=== PATIENT | male | born 1990 ===

== ENCOUNTER 2016-06-24 17:02 | Emergency (ER) | payer SELFPAY ==
[2016-06-24 17:23] VITALS: BP 130/78; PULSE 113; RESP 20; TEMP 100; O2SAT 99
[2016-06-24] MEDS ORDERED: Albuterol-Ipratrop 3 mg / 0.5 (3 ml) UD INH STA (17:25)
[2016-06-24] MEDS ORDERED: Albuterol-Ipratrop 3 mg / 0.5 (3 ml) UD IH STA ×2 (17:25→17:26)
[2016-06-24] MEDS ORDERED: Albuterol-Ipratrop 3 mg / 0.5 (3 ml) UD ONE (17:26)
--- NOTE | 2016-06-24 17:29 | ED PDOC ---
HPI: CCC, URI, Sore Throat Time Seen by Provider: 06/24/16 17:15 Chief Complaint (Nursing): Flu-like Symptoms Chief Complaint (Provider): Cough History Per: Patient History/Exam Limitations: no limitations Have you had recent travel within the past 21 days to any of the following countries: [place], [place], [place] or [place]?: No Onset/Duration Of Symptoms: Days Current Symptoms Are (Timing): Still Present Associated Symptoms: Nasal Congestion Additional Complaint(s): Pt. with cough, wheezes, bodyaches ongoing since yesterday. No nausea, vomit, diarrhea. Has chest pain only on coughing a lot. No abd pain, back pain, sore throat, fever. Did not take any meds for it except nebulizer which helped some. No weakness. No calf pain or long distance travel. Feels like his asthma flare that he has had in the past. Past Medical History Reviewed: Nursing Documentation, Vital Signs Vital Signs: Last Vital Signs Temp 100.0 F H 06/24/16 17:11 Pulse 113 H 06/24/16 17:11 Resp 20 06/24/16 17:11 BP 130/78 06/24/16 17:11 Pulse Ox 99 06/24/16 17:32 - Medical History PMH: Asthma - Family History Family History: States: Unknown Family Hx, Hypertension - Living Arrangements Living Arrangements: With Family - Social History Current smoker - smoking cessation education provided: No Alcohol: None Drugs: Denies - Home Medications Home Medications: Ambulatory Orders Medication Instructions Recorded Albuterol 0.083% [Albuterol 3 ml IH Q4 PRN #20 neb 04/16/16 Sulfate 3 Ml] Albuterol HFA [Ventolin HFA 90 2 puff IH Q4 PRN #1 inh 04/16/16 mcg/actuation (8 g)] Fluticasone/Salmeterol 250/50 1 puff IH Q12 #1 inh 04/16/16 [Advair Diskus] Prednisone 50 mg PO DAILY #5 tablet 04/16/16 Azithromycin [Zithromax Tri-Earl] 1 tab PO DAILY #3 tablet 04/18/16 Albuterol Sulfate [Proair Hfa] 0.09 mg IH Q6H PRN #2 inh 06/24/16 Azithromycin [Zithromax] 250 mg PO DAILY 5 Days 06/24/16 Ibuprofen [Motrin] 600 mg PO TID 7 Days 06/24/16 predniSONE [predniSONE Tab] 20 mg PO BID 5 Days 06/24/16 - Allergies Allergies/Adverse Reactions: Allergies Allergy/AdvReac Type Severity Reaction Status Date / Time No Known Allergies Allergy Verified 04/16/16 18:27 Review of Systems Constitutional: Negative for: Fever, Weakness Eyes: Negative for: Vision Change ENT: Negative for: Nose Pain, Nose Discharge, Nose Congestion, Mouth Pain, Mouth Swelling, Throat Pain Cardiovascular: Positive for: Chest Pain. Negative for: Palpitations, Orthopnea , Edema, Light Headedness Respiratory: Positive for: Cough, Shortness of Breath, Wheezing Gastrointestinal: Negative for: Nausea, Vomiting, Abdominal Pain Musculoskeletal: Positive for: Other (bodyaches). Negative for: Neck Pain, Arm Pain Neurological: Negative for: Weakness, Confusion, Headache, Dizziness Physical Exam - Reviewed Nursing Documentation Reviewed: Yes Vital Signs Reviewed: Yes - Physical Exam Appears: Positive for: Non-toxic, No Acute Distress Head Exam: Positive for: ATRAUMATIC, NORMAL INSPECTION, NORMOCEPHALIC Skin: Positive for: Normal Color, Warm, DRY Eye Exam: Positive for: EOMI, Normal appearance, PERRL ENT: Positive for: Nasal Congestion. Negative for: Pharyngeal Erythema, Tonsillar Exudate Neck: Positive for: Normal, Painless ROM Cardiovascular/Chest: Positive for: Regular Rate, Rhythm. Negative for: Edema Respiratory: Positive for: Decreased Breath Sounds, Wheezing (b/l diffuse). Negative for: Accessory Muscle Use Gastrointestinal/Abdominal: Positive for: Soft. Negative for: Tenderness, Guarding Back: Positive for: Normal Inspection. Negative for: L CVA Tenderness, R CVA Tenderness Extremity: Positive for: Normal ROM. Negative for: Tenderness, Pedal Edema, Calf Tenderness Neurologic/Psych: Positive for: Alert, Oriented - Laboratory Results Interpretation Of Abn Labs: no acute - ECG O2 Sat by Pulse Oximetry: 99 Pulse Ox Interpretation: Normal - Radiology X-Ray: Interpreted by Me, Viewed By Me, Read By Radiologist X-Ray Interpretation: Infiltrates (LLL) - Progress ED Course And Treament: 1905: Stable. AAOx3. Pain free. Feels much better. Breathing comfortably. Tolerated PO. FU with pcp. Disposition - Clinical Impression Clinical Impression: Pneumonia - Patient ED Disposition Is Patient to be Admitted: No Counseled Patient/Family Regarding: Studies Performed, Diagnosis, Need For Followup, Rx Given - Disposition Referrals: [facility] [Outside] - 06/25/16 Disposition: Routine/Home Disposition Time: 19:06 Condition: STABLE Additional Instructions: Return if not better in 3 days. Prescriptions: Ibuprofen [Motrin] 600 mg PO TID 7 Days Albuterol Sulfate [Proair Hfa] 0.09 mg IH Q6H PRN #2 inh PRN Reason: Wheezing Azithromycin [Zithromax] 250 mg PO DAILY 5 Days predniSONE [predniSONE Tab] 20 mg PO BID 5 Days Instructions: Pneumonia (ED) Forms: [facility] ED School/Work Excuse
--- NOTE | 2016-06-24 18:00 | RAD ---
HISTORY: dyspnea COMPARISON: Chest x-ray performed 04/18/16 TECHNIQUE: Chest PA and lateral FINDINGS: LUNGS: Mild left basilar atelectasis or developing infiltrate. Please note that chest x-ray has limited sensitivity for the detection of pulmonary masses. PLEURA: No significant pleural effusion identified. No definite pneumothorax . CARDIOVASCULAR: The cardiomediastinal silhouette appears within normal limits of size. OSSEOUS STRUCTURES: No acute osseous abnormality identified. VISUALIZED UPPER ABDOMEN: Unremarkable. OTHER FINDINGS: None. IMPRESSION: Mild left basilar atelectasis or developing infiltrate.
--- NOTE | 2016-06-25 11:22 | CARD ---
APPROVED REPORT EKG Measurement Heart [id number] <Conclusion> Sinus tachycardia Cannot rule out Inferior infarct, age undetermined Abnormal ECG
== END 2016-06-24 19:25 | disposition home or self-care (01) ==
LOC: H.ER 17:02
DX: J18.9 Pneumonia, unspecified organism (principal); J02.9 Acute pharyngitis, unspecified; R50.9 Fever, unspecified

== ENCOUNTER 2016-09-27 11:47 | Emergency (ER) | payer OTHER ==
[2016-09-27 11:52] VITALS: BP 129/67; TEMP 98; O2SAT 98
[2016-09-27 11:53] VITALS: BMI 36.2
[2016-09-27 12:12] VITALS: PULSE 97; RESP 17
--- NOTE | 2016-09-27 12:29 | ED PDOC ---
HPI: General Adult Time Seen by Provider: 09/27/16 12:07 Chief Complaint (Nursing): Rib Injury Chief Complaint (Provider): Left Rib Cage Pain History Per: Patient History/Exam Limitations: no limitations Onset/Duration Of Symptoms: Other (Acute onset) Have you had recent travel within the past 21 days to any of the following countries: [place], [place], [place] or [place]?: No Current Symptoms Are (Timing): Still Present Pain Scale Rating Of: 5 Additional Complaint(s): Timi Domingo, a 26 year old male, presents to the ED with left rib cage pain. The patient states he was lifting cement blocks then he went to stretch and had an acute onset of pain. Pt states he felt a pop sensation. He states that the pain is non-radiating and he has not had similar pains in the past. The patient reports that he took tylenol to ease the pain but it offered him no relief prompting his ED visit. He states that the pain increases with movement and deep breathing. Denies nausea, vomiting, diarrhea, SOB, and abdominal pain. Past Medical History Reviewed: Historical Data, Nursing Documentation, Vital Signs Vital Signs: Last Vital Signs Temp 98 F 09/27/16 11:51 Pulse 97 H 09/27/16 11:51 Resp 17 09/27/16 12:10 BP 129/67 09/27/16 11:51 Pulse Ox 98 09/27/16 13:18 - Medical History PMH: Asthma - Surgical History Surgical History: No Surg Hx - Family History Family History: States: Unknown Family Hx, Hypertension - Social History Current smoker - smoking cessation education provided: Yes Alcohol: Occasional Drugs: Denies - Home Medications Home Medications: Ambulatory Orders Medication Instructions Recorded Albuterol 0.083% [Albuterol 3 ml IH Q4 PRN #20 neb 04/16/16 Sulfate 3 Ml] Albuterol HFA [Ventolin HFA 90 2 puff IH Q4 PRN #1 inh 04/16/16 mcg/actuation (8 g)] Fluticasone/Salmeterol 250/50 1 puff IH Q12 #1 inh 04/16/16 [Advair Diskus] Prednisone 50 mg PO DAILY #5 tablet 04/16/16 Azithromycin [Zithromax Tri-Earl] 1 tab PO DAILY #3 tablet 04/18/16 Albuterol Sulfate [Proair Hfa] 0.09 mg IH Q6H PRN #2 inh 06/24/16 Azithromycin [Zithromax] 250 mg PO DAILY 5 Days 06/24/16 Ibuprofen [Motrin] 600 mg PO TID 7 Days 06/24/16 predniSONE [predniSONE Tab] 20 mg PO BID 5 Days 06/24/16 Ibuprofen [Motrin Tab] 800 mg PO Q6H PRN #20 tab 09/27/16 - Allergies Allergies/Adverse Reactions: Allergies Allergy/AdvReac Type Severity Reaction Status Date / Time cyclobenzaprine AdvReac VOMITING Verified 09/27/16 12:45 [From Flexeril] Review of Systems ROS Statement: Except As Marked, All Systems Reviewed And Found Negative Cardiovascular: Negative for: Chest Pain Gastrointestinal: Negative for: Nausea, Vomiting, Diarrhea Musculoskeletal: Positive for: Other (Left rib cage pain) Physical Exam - Reviewed Nursing Documentation Reviewed: Yes Vital Signs Reviewed: Yes - Physical Exam Appears: Positive for: Well, Non-toxic, No Acute Distress Head Exam: Positive for: ATRAUMATIC, NORMAL INSPECTION, NORMOCEPHALIC Skin: Positive for: Normal Color, Warm, DRY Eye Exam: Positive for: Normal appearance ENT: Positive for: Normal ENT Inspection Cardiovascular/Chest: Positive for: Regular Rate, Rhythm. Negative for: Chest Non Tender Respiratory: Positive for: Normal Breath Sounds, Other (Tenderness to right left cage without crepitus and without step off; no ecchymosis and no erythema in area of tenderness). Negative for: Accessory Muscle Use, Wheezing, Respiratory Distress Gastrointestinal/Abdominal: Positive for: Normal Exam, Soft. Negative for: Tenderness Back: Positive for: Normal Inspection Neurologic/Psych: Positive for: Alert, Oriented, Gait - ECG O2 Sat by Pulse Oximetry: 98 (RA) Pulse Ox Interpretation: Normal Medical Decision Making Medical Decision Makin:07 Initial Impression: 26 year old male presenting with acute left rib cage pain. Initial Plan: * RAD Ribs and chest * Flexeril 10mg PO - Not given, patient reports nausea and vomiting with it * Motrin TAB 600mg PO Rib x-ray : No acute fracture, no pneumothorax, no pneumonia Scribe Attestation: Documented by Colette Millan acting as a scribe for Mary Lutz PA-C. Scribe Attestation All medical record entries made by the Scribe were at my direction and personally dictated by me. I have reviewed the chart and agree that the record accurately reflects my personal performance of the history, physical exam, medical decision making, and the department course for this patient. I have also personally directed, reviewed, and agree with the discharge instructions and disposition. Disposition - Clinical Impression Clinical Impression: Rib pain - Patient ED Disposition Is Patient to be Admitted: No Counseled Patient/Family Regarding: Diagnosis, Need For Followup, Rx Given - Disposition Referrals: [facility] [Outside] Disposition: Routine/Home Disposition Time: 13:21 Condition: GOOD Prescriptions: Ibuprofen [Motrin Tab] 800 mg PO Q6H PRN #20 tab PRN Reason: Pain Instructions: Rib Contusion (ED)
--- NOTE | 2016-09-27 13:35 | RAD ---
PROCEDURE: Radiographs of the Chest and Left Ribs. HISTORY: rib pain, cracking COMPARISON: None availableKey. TECHNIQUE: Frontal radiograph of the chest and multiple oblique radiographs of the left ribs were obtained. FINDINGS: LEFT RIBS: No fracture or focal lesion visualized. LUNGS: Clear. PLEURA: No pneumothorax or pleural fluid. CARDIOVASCULAR: Normal sized heart. No pulmonary vascular congestion. OTHER FINDINGS: None. IMPRESSION: Unremarkable radiographs of the chest and left ribs. No left rib fracture.
--- NOTE | 2016-10-02 09:36 | CARD ---
APPROVED REPORT EKG Measurement Heart [id number] ID [id number] <Conclusion> Normal sinus rhythm ???Possible Inferior infarct, age undetermined Repeat EKG after a deep inspiration in upright position Abnormal ECG
== END 2016-09-27 13:48 | disposition home or self-care (01) ==
LOC: H.ER 11:47
DX: R07.81 Pleurodynia (principal); J45.909 Unspecified asthma, uncomplicated

== ENCOUNTER 2016-11-05 14:47 | Emergency (ER) | payer OTHER ==
[2016-11-05 14:48] VITALS: BMI 36.2
[2016-11-05 15:02] VITALS: O2SAT 100
--- NOTE | 2016-11-05 17:53 | RAD ---
HISTORY: Left flank pain x 1 month COMPARISON: 09/27/2016. TECHNIQUE: Chest PA and lateral FINDINGS: LUNGS: No active pulmonary disease. PLEURA: No significant pleural effusion identified. No pneumothorax apparent. CARDIOVASCULAR: Normal. OSSEOUS STRUCTURES: No significant abnormalities. VISUALIZED UPPER ABDOMEN: Normal. OTHER FINDINGS: None. IMPRESSION: No active disease. No significant interval change compared to the prior examination(s).
--- NOTE | 2016-11-05 17:53 | ED PDOC ---
HPI: General Adult Time Seen by Provider: 11/05/16 15:24 Chief Complaint (Nursing): Rib Injury Chief Complaint (Provider): LEft rib pain 1 month, headache x years, right arm numbness x 3 months inte History Per: Patient History/Exam Limitations: no limitations Onset/Duration Of Symptoms: Days Have you had recent travel within the past 21 days to any of the following countries: [place], [place], [place] or [place]?: No Current Symptoms Are (Timing): Still Present Severity: Moderate Pain Scale Rating Of: 5 Additional Complaint(s): PT states he also would like his cholesterol checked. PT does not have PMD. No medications for headache or rib pain taken today. Past Medical History Reviewed: Historical Data, Nursing Documentation, Vital Signs Vital Signs: Last Vital Signs Temp 98 F 11/05/16 14:59 Pulse 94 H 11/05/16 14:59 Resp 18 11/05/16 14:59 BP 126/57 L 11/05/16 14:59 Pulse Ox 100 11/05/16 14:59 - Medical History PMH: Asthma - Surgical History Surgical History: No Surg Hx - Family History Family History: States: Unknown Family Hx, Hypertension - Home Medications Home Medications: Ambulatory Orders Medication Instructions Recorded Albuterol 0.083% [Albuterol 3 ml IH Q4 PRN #20 neb 04/16/16 Sulfate 3 Ml] Albuterol HFA [Ventolin HFA 90 2 puff IH Q4 PRN #1 inh 04/16/16 mcg/actuation (8 g)] Fluticasone/Salmeterol 250/50 1 puff IH Q12 #1 inh 04/16/16 [Advair Diskus] Prednisone 50 mg PO DAILY #5 tablet 04/16/16 Azithromycin [Zithromax Tri-Earl] 1 tab PO DAILY #3 tablet 04/18/16 Albuterol Sulfate [Proair Hfa] 0.09 mg IH Q6H PRN #2 inh 06/24/16 Azithromycin [Zithromax] 250 mg PO DAILY 5 Days 06/24/16 Ibuprofen [Motrin] 600 mg PO TID 7 Days 06/24/16 predniSONE [predniSONE Tab] 20 mg PO BID 5 Days 06/24/16 Ibuprofen [Motrin Tab] 800 mg PO Q6H PRN #20 tab 06/01/17 - Allergies Allergies/Adverse Reactions: Allergies Allergy/AdvReac Type Severity Reaction Status Date / Time cyclobenzaprine AdvReac VOMITING Verified 09/27/16 12:45 [From Flexeril] Review of Systems ROS Statement: Except As Marked, All Systems Reviewed And Found Negative Musculoskeletal: Positive for: Other (Rib pain x 1 month ) Neurological: Positive for: Numbness (Right arm, intermittent x 3 months ), Headache (On/off for years) Physical Exam - Reviewed Nursing Documentation Reviewed: Yes Vital Signs Reviewed: Yes - Physical Exam Appears: Positive for: Well, Non-toxic, No Acute Distress Head Exam: Positive for: ATRAUMATIC, NORMAL INSPECTION, NORMOCEPHALIC Skin: Positive for: Normal Color, Warm, DRY Eye Exam: Positive for: Normal appearance, EOMI, PERRL ENT: Positive for: Normal ENT Inspection Neck: Positive for: Normal, Painless ROM Cardiovascular/Chest: Positive for: Regular Rate, Rhythm Respiratory: Positive for: CNT, Normal Breath Sounds Gastrointestinal/Abdominal: Positive for: Normal Exam, Bowel Sounds, Soft Back: Positive for: Normal Inspection Extremity: Positive for: Normal ROM Neurologic/Psych: Positive for: Alert, Oriented - ECG O2 Sat by Pulse Oximetry: 100 Pulse Ox Interpretation: Normal Medical Decision Making Medical Decision Making: C-spine normal CXR normal Disposition - Clinical Impression Clinical Impression: Radicular pain, Rib pain - Disposition Disposition: Routine/Home Disposition Time: 17:54 Condition: GOOD Instructions: Cervical Radiculopathy (ED)
[2016-11-05 17:54] VITALS: BP 128/78; PULSE 78; RESP 19; TEMP 97.7
--- NOTE | 2016-11-06 12:41 | RAD ---
PROCEDURE: Cervical Spine Radiographs. HISTORY: Pain. COMPARISON: None. FINDINGS: BONES: Alignment maintained. No fracture. Dens Intact. DISC SPACES: Disc spaces maintained in height. Spondylotic changes at C5-6 with osteophytes but no disc space narrowing. SOFT TISSUES: Normal. No prevertebral soft tissue swelling. OTHER FINDINGS: None. IMPRESSION: No fracture/ dislocation. Spondylotic changes at C5-6.
== END 2016-11-05 17:52 | disposition home or self-care (01) ==
LOC: H.ER 14:47
DX: M54.10 Radiculopathy, site unspecified (principal); R07.82 Intercostal pain

== ENCOUNTER 2016-11-09 18:06 | Emergency (ER) | payer OTHER ==
[2016-11-09 18:06] VITALS: BMI 36.2
[2016-11-09] MEDS ORDERED: Albuterol-Ipratrop 3 mg / 0.5 (3 ml) UD IH STA (18:50)
[2016-11-09] MEDS ORDERED: Albuterol-Ipratrop 3 mg / 0.5 (3 ml) UD INH STA (18:50)
--- NOTE | 2016-11-09 18:52 | ED PDOC ---
HPI: SOB/CHF/COPD Time Seen by Provider: 11/09/16 18:37 Chief Complaint (Nursing): Shortness Of Breath Chief Complaint (Provider): Shortness Of Breath History Per: Patient History/Exam Limitations: no limitations Onset/Duration Of Symptoms: Days (x 1 week) Current Symptoms Are (Timing): Still Present Associated Symptoms: Productive Cough. denies: Chest Pain, Dizziness, Tingling In Hands Or Face Additional Complaint(s): Timi is a 26 y/o male with a past medical history of asthma, who presents to the emergency department complaining of difficulty breathing with associated cough with green phlegm, ongoing for 1 week. Patient denies long distance travel , chest pain, leg pain, numbness, tingling, headaches, dizziness, weakness, nausea, vomiting, and diarrhea. He reports taking nebulized treatments with minimal improvement, but woke up with symptoms again today. Patient is only taking medications for his asthma. 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 Feels like his asthma. PMD: Unknown Past Medical History Reviewed: Historical Data, Nursing Documentation, Vital Signs Vital Signs: Last Vital Signs Temp 98.2 F 11/09/16 18:12 Pulse 99 H 11/09/16 18:12 Resp 19 11/09/16 18:31 BP 152/89 H 11/09/16 18:12 Pulse Ox 97 11/09/16 20:08 - Medical History PMH: Asthma - Surgical History Surgical History: No Surg Hx - Family History Family History: States: Unknown Family Hx - Social History Current smoker - smoking cessation education provided: Yes (Heavy) Alcohol: Occasional Drugs: Denies - Home Medications Home Medications: Ambulatory Orders Medication Instructions Recorded Albuterol 0.083% [Albuterol 3 ml IH Q4 PRN #20 neb 04/16/16 Sulfate 3 Ml] Albuterol HFA [Ventolin HFA 90 2 puff IH Q4 PRN #1 inh 04/16/16 mcg/actuation (8 g)] Fluticasone/Salmeterol 250/50 1 puff IH Q12 #1 inh 04/16/16 [Advair Diskus] Prednisone 50 mg PO DAILY #5 tablet 04/16/16 Azithromycin [Zithromax Tri-Earl] 1 tab PO DAILY #3 tablet 04/18/16 Albuterol Sulfate [Proair Hfa] 0.09 mg IH Q6H PRN #2 inh 06/24/16 Azithromycin [Zithromax] 250 mg PO DAILY 5 Days 06/24/16 Ibuprofen [Motrin] 600 mg PO TID 7 Days 06/24/16 predniSONE [predniSONE Tab] 20 mg PO BID 5 Days 06/24/16 Ibuprofen [Motrin Tab] 800 mg PO Q6H PRN #20 tab 09/27/16 Albuterol Sulfate [Proair Hfa] 0.09 mg IH Q6H PRN #2 inh 11/09/16 predniSONE [predniSONE Tab] 20 mg PO BID 5 Days 11/09/16 - Allergies Allergies/Adverse Reactions: Allergies Allergy/AdvReac Type Severity Reaction Status Date / Time cyclobenzaprine AdvReac VOMITING Verified 09/27/16 12:45 [From Flexeril] Review of Systems ROS Statement: Except As Marked, All Systems Reviewed And Found Negative Constitutional: Negative for: Weakness Cardiovascular: Negative for: Chest Pain Respiratory: Positive for: Cough (with green phlegm), Shortness of Breath, Sputum Gastrointestinal: Negative for: Nausea, Vomiting, Diarrhea Musculoskeletal: Negative for: Leg Pain Neurological: Negative for: Numbness, Headache, Dizziness, Other (Tingling) Physical Exam - Reviewed Nursing Documentation Reviewed: Yes Vital Signs Reviewed: Yes - Physical Exam Appears: Positive for: Non-toxic, No Acute Distress Head Exam: Positive for: ATRAUMATIC, NORMAL INSPECTION, NORMOCEPHALIC Skin: Positive for: Normal Color, Warm, Dry Eye Exam: Positive for: EOMI, Normal appearance, PERRL ENT: Positive for: Nasal Congestion Neck: Positive for: Normal, Painless ROM, Supple Cardiovascular/Chest: Positive for: Regular Rate, Rhythm Respiratory: Positive for: Decreased Breath Sounds, Wheezing (mild wheezing bilaterally at the bases and on expiration ) Gastrointestinal/Abdominal: Positive for: Normal Exam, Soft. Negative for: Tenderness Back: Positive for: Normal Inspection. Negative for: L CVA Tenderness, R CVA Tenderness Extremity: Positive for: Normal ROM. Negative for: Deformity Neurologic/Psych: Positive for: Alert, Oriented - ECG O2 Sat by Pulse Oximetry: 97 (RA) Pulse Ox Interpretation: Normal - Progress ED Course And Treament: 2021: Stable. AAOx3. Feels much better. Breathing better. Ambulated with no issues. Medical Decision Making Medical Decision Making: Time: 18:50 Initial Plan: --Albuterol 3 mL INH --Predisone 60 mg PO --Pending X-Ray Left Shoulder --Peak Flow pre/post Treatment --Pending reassessment Time: 20:05 Upon provider evaluation patient is feeling better, medically stable, and requires no further treatment in the ED at this time. Patient will be discharged home with Rx. Counseling was provided and all questions were answered regarding diagnosis and need for follow up. There is agreement to discharge plan. Return if symptoms persist or worsen. Scribe Attestation: Documented by Yesica Rivera, acting as a scribe for Magen Stern MD Provider Scribe Attestation: All medical record entries made by the Scribe were at my direction and personally dictated by me. I have reviewed the chart and agree that the record accurately reflects my personal performance of the history, physical exam, medical decision making, and the department course for this patient. I have also personally directed, reviewed, and agree with the discharge instructions and disposition. Disposition - Clinical Impression Clinical Impression: Asthma - Patient ED Disposition Is Patient to be Admitted: No Counseled Patient/Family Regarding: Diagnosis, Need For Followup, Rx Given - Disposition Referrals: [facility] [Outside] - 11/12/16 Disposition: Routine/Home Disposition Time: 20:23 Condition: STABLE Additional Instructions: Return if not better in 3 days. Prescriptions: Albuterol Sulfate [Proair Hfa] 0.09 mg IH Q6H PRN #2 inh PRN Reason: Wheezing predniSONE [predniSONE Tab] 20 mg PO BID 5 Days Instructions: Asthma (ED) Forms: [facility] ED School/Work Excuse
[2016-11-09] MEDS ORDERED: Albuterol-Ipratrop 3 mg / 0.5 (3 ml) UD ONE ×2 (18:55→18:56)
[2016-11-10 12:01] VITALS: BP 152/89; PULSE 99; RESP 19; TEMP 98.2; O2SAT 97
== END 2016-11-09 20:31 | disposition home or self-care (01) ==
LOC: H.ER 18:06
DX: J45.909 Unspecified asthma, uncomplicated (principal)

== ENCOUNTER 2017-03-10 20:00 | Emergency (ER) | payer OTHER ==
[2017-03-10 20:00] VITALS: BMI 36.2
[2017-03-10 20:18] VITALS: BP 138/95; PULSE 109; RESP 18; TEMP 98.3; O2SAT 96
[2017-03-10] MEDS ORDERED: Albuterol-Ipratrop 3 mg / 0.5 (3 ml) UD ONE (20:57)
[2017-03-10] MEDS ORDERED: Albuterol-Ipratrop 3 mg / 0.5 (3 ml) UD INH STA ×3 (21:06→21:07)
--- NOTE | 2017-03-10 21:24 | ED PDOC ---
HPI: Chest Pain Time Seen by Provider: 03/10/17 20:11 Chief Complaint (Nursing): Chest Pain Chief Complaint (Provider): Chest Pain History Per: Patient Current Symptoms Are (Timing): Still Present Additional Complaint(s): 27 y/o male with history of Asthma presents to the ED complaining of chest pain and tightness radiating to the back x3days. Patient notes cold, congestion , and mild fever. Denies any further medical complaints. Past Medical History Reviewed: Historical Data, Nursing Documentation, Vital Signs Vital Signs: Last Vital Signs Temp 98.3 F 03/10/17 20:15 Pulse 109 H 03/10/17 20:15 Resp 18 03/10/17 20:15 BP 138/95 H 03/10/17 20:15 Pulse Ox 96 03/10/17 21:27 - Medical History PMH: Asthma - Family History Family History: States: Unknown Family Hx, Hypertension - Social History Current smoker - smoking cessation education provided: Yes (Heavy smoker>10 cigarettes daily) Alcohol: > 2 Drinks/Day Drugs: Denies - Home Medications Home Medications: Ambulatory Orders Medication Instructions Recorded Albuterol 0.083% [Albuterol 3 ml IH Q4 PRN #20 neb 04/16/16 Sulfate 3 Ml] Albuterol HFA [Ventolin HFA 90 2 puff IH Q4 PRN #1 inh 04/16/16 mcg/actuation (8 g)] Fluticasone/Salmeterol 250/50 1 puff IH Q12 #1 inh 04/16/16 [Advair Diskus] Prednisone 50 mg PO DAILY #5 tablet 04/16/16 Azithromycin [Zithromax Tri-Earl] 1 tab PO DAILY #3 tablet 04/18/16 Albuterol Sulfate [Proair Hfa] 0.09 mg IH Q6H PRN #2 inh 06/24/16 Azithromycin [Zithromax] 250 mg PO DAILY 5 Days tab 06/24/16 Ibuprofen [Motrin] 600 mg PO TID 7 Days tab 06/24/16 predniSONE [predniSONE Tab] 20 mg PO BID 5 Days tab 06/24/16 Ibuprofen [Motrin Tab] 800 mg PO Q6H PRN #20 tab 09/27/16 Albuterol Sulfate [Proair Hfa] 0.09 mg IH Q6H PRN #2 inh 11/09/16 predniSONE [predniSONE Tab] 20 mg PO BID 5 Days tab 11/09/16 Albuterol HFA [Ventolin HFA 90 2 puff IH [id number] PRN #1 puff 03/10/17 mcg/actuation (8 g)] Methylprednisolone [Medrol Dose 4 mg PO DAILY #21 mg 03/10/17 Pack (21 tabs)] Promethazine HCl/Codeine 5 ml PO HS #80 ml 03/10/17 [Prometh-Codein 6.25-10 mg/5 ml] - Allergies Allergies/Adverse Reactions: Allergies Allergy/AdvReac Type Severity Reaction Status Date / Time cyclobenzaprine AdvReac VOMITING Verified 09/27/16 12:45 [From Flexeril] Review of Systems ROS Statement: Except As Marked, All Systems Reviewed And Found Negative (As per HPI, otherwise negative) Constitutional: Positive for: Fever (mild) ENT: Positive for: Nose Congestion Cardiovascular: Positive for: Chest Pain Respiratory: Positive for: Cough Physical Exam - Reviewed Nursing Documentation Reviewed: Yes Vital Signs Reviewed: Yes - Physical Exam Appears: Positive for: Non-toxic, No Acute Distress Head Exam: Positive for: ATRAUMATIC, NORMAL INSPECTION, NORMOCEPHALIC Skin: Positive for: Normal Color, Warm, Dry Cardiovascular/Chest: Positive for: Regular Rate, Rhythm. Negative for: Murmur Respiratory: Positive for: Normal Breath Sounds. Negative for: Accessory Muscle Use, Respiratory Distress Neurologic/Psych: Positive for: Alert, Oriented (x3) - ECG O2 Sat by Pulse Oximetry: 96 (RA) Pulse Ox Interpretation: Normal Medical Decision Making Medical Decision Making: Time: 21:06 Initial Plan: --CXR --Albuterol 3ml INH --Albuterol 3ml INH --Albuterol 3ml INH --Methylprednisolone 125mg IVP --Peak flow pre/post Tx --Peak flow pre/post Tx --Peak flow pre/post Tx --Reevaluation Lungs CTA bilaterally on re-eval. POX:98% On RA Scribe Attestation: Documented by Igor Ramsey, acting as a scribe for Tiffani Leal PA-C Provider Scribe Attestation: All medical record entries made by the Scribe were at my direction and personally dictated by me. I have reviewed the chart and agree that the record accurately reflects my personal performance of the history, physical exam, medical decision making, and the department course for this patient. I have also personally directed, reviewed, and agree with the discharge instructions and disposition. Disposition - Clinical Impression Clinical Impression: Bronchitis - Patient ED Disposition Is Patient to be Admitted: No - Disposition Disposition: Routine/Home Disposition Time: 21:00 Condition: STABLE Prescriptions: Albuterol HFA [Ventolin HFA 90 mcg/actuation (8 g)] 2 puff IH [id number] PRN #1 puff PRN Reason: Shortness Of Breath Methylprednisolone [Medrol Dose Pack (21 tabs)] 4 mg PO DAILY #21 mg Promethazine HCl/Codeine [Prometh-Codein 6.25-10 mg/5 ml] 5 ml PO HS #80 ml Instructions: Acute Bronchitis (ED) Forms: [employer] (Ku[place]i), [facility] ED School/Work Excuse
--- NOTE | 2017-03-11 09:40 | RAD ---
HISTORY: chest pain, sob COMPARISON: Chest radiographs 11/05/2016. TECHNIQUE: Chest PA and lateral FINDINGS: LUNGS: No acute infiltrate is appreciated bilaterally. Marginal elevation left hemidiaphragm is again appreciated. Trace fibrosis noted at the left base once again. PLEURA: No significant pleural effusion identified. No pneumothorax apparent. CARDIOVASCULAR: Normal. OSSEOUS STRUCTURES: No significant abnormalities. VISUALIZED UPPER ABDOMEN: Normal. OTHER FINDINGS: None. IMPRESSION: Limited left hemidiaphragm elevation again evident. Trace fibrosis left base. No signal interval change or acute infiltrate/pleural effusion bilaterally.
== END 2017-03-10 22:45 | disposition home or self-care (01) ==
LOC: H.ER 20:00
DX: J40 Bronchitis, not specified as acute or chronic (principal); J45.909 Unspecified asthma, uncomplicated
CPT/HCPCS: 71020; 94640; 96374; 99282; J2930

== ENCOUNTER 2017-03-29 23:48 | Emergency (ER) | payer OTHER ==
[2017-03-29 23:49] VITALS: BMI 36.2
[2017-03-29 23:57] VITALS: BP 141/79; O2SAT 99
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
[2017-03-30 01:56] VITALS: PULSE 90
[2017-03-30 01:57] VITALS: RESP 17
--- NOTE | 2017-03-30 17:55 | RAD ---
PROCEDURE: Chest and right rib series dated on 03/30/2017 HISTORY: Chest wall pain. COMPARISON: Comparison made with chest radiograph 03/10/2017. TECHNIQUE: Frontal radiograph of the chest and multiple oblique radiographs of the right ribs were obtained. FINDINGS: RIGHT RIBS: No fracture or focal lesion visualized. LUNGS: Clear. PLEURA: No pneumothorax or pleural fluid. CARDIOVASCULAR: Normal sized heart. No pulmonary vascular congestion. OTHER FINDINGS: Minor multilevel degenerative spondylosis of the thoracic spine. IMPRESSION: Unremarkable radiographs of the chest and right ribs. No right rib fracture. Consider followup CT scan if acute fracture suspected clinically
--- NOTE | 2017-03-31 11:13 | CARD ---
APPROVED REPORT EKG Measurement Heart [id number] IL [id number] <Conclusion> Normal sinus rhythm Possible Left atrial enlargement Possible Inferior infarct, age undetermined Abnormal ECG
== END 2017-03-30 01:58 | disposition home or self-care (01) ==
LOC: H.ER 23:48
DX: S20.219A Contusion of unspecified front wall of thorax, initial encounter (principal); W22.8XXA Striking against or struck by other objects, initial encounter; Y92.89 Other specified places as the place of occurrence of the external cause; J45.909 Unspecified asthma, uncomplicated; Z87.891 Personal history of nicotine dependence
CPT/HCPCS: 71101; 93005; 96372; 99283; J1885

== ENCOUNTER 2017-04-21 22:20 | Emergency (ER) | payer OTHER ==
[2017-04-21 22:33] VITALS: BP 150/108; PULSE 84; RESP 18; TEMP 98.7
[2017-04-21] MEDS ORDERED: Albuterol-Ipratrop 3 mg / 0.5 (3 ml) UD IH STA (22:34)
--- NOTE | 2017-04-21 22:36 | ED PDOC ---
HPI: SOB/CHF/COPD Time Seen by Provider: 04/21/17 22:28 Chief Complaint (Nursing): Shortness Of Breath History Per: Patient Onset/Duration Of Symptoms: Days (1) Current Symptoms Are (Timing): Still Present Quality: Tightness Current Respiratory Medications: See Home Med List Severity: Mild Associated Symptoms: denies: Fever Additional Complaint(s): SOB assoc with nonproductive cough x 1 days. No fever. No improvement with inhaler. Past Medical History Vital Signs: Last Vital Signs Temp 98.7 F 04/21/17 22:28 Pulse 84 04/21/17 22:28 Resp 18 04/21/17 22:47 BP 150/108 H 04/21/17 22:28 Pulse Ox 98 04/21/17 22:47 - Medical History PMH: Asthma - Family History Family History: States: Unknown Family Hx, Hypertension - Home Medications Home Medications: Ambulatory Orders Medication Instructions Recorded Albuterol 0.083% [Albuterol 3 ml IH Q4 PRN #20 neb 04/16/16 Sulfate 3 Ml] Albuterol HFA [Ventolin HFA 90 2 puff IH Q4 PRN #1 inh 04/16/16 mcg/actuation (8 g)] Fluticasone/Salmeterol 250/50 1 puff IH Q12 #1 inh 04/16/16 [Advair Diskus] Prednisone 50 mg PO DAILY #5 tablet 04/16/16 Azithromycin [Zithromax Tri-Earl] 1 tab PO DAILY #3 tablet 04/18/16 Albuterol Sulfate [Proair Hfa] 0.09 mg IH Q6H PRN #2 inh 06/24/16 Azithromycin [Zithromax] 250 mg PO DAILY 5 Days tab 06/24/16 Ibuprofen [Motrin] 600 mg PO TID 7 Days tab 06/24/16 predniSONE [predniSONE Tab] 20 mg PO BID 5 Days tab 06/24/16 Ibuprofen [Motrin Tab] 800 mg PO Q6H PRN #20 tab 09/27/16 Albuterol Sulfate [Proair Hfa] 0.09 mg IH Q6H PRN #2 inh 11/09/16 predniSONE [predniSONE Tab] 20 mg PO BID 5 Days tab 11/09/16 Albuterol HFA [Ventolin HFA 90 2 puff IH [id number] PRN #1 puff 03/10/17 mcg/actuation (8 g)] Methylprednisolone [Medrol Dose 4 mg PO DAILY #21 mg 03/10/17 Pack (21 tabs)] Promethazine HCl/Codeine 5 ml PO HS #80 ml 03/10/17 [Prometh-Codein 6.25-10 mg/5 ml] Albuterol HFA [Ventolin HFA 90 1 - 2 puff IH Q6 PRN #1 inhaler 03/30/17 mcg/actuation (8 g)] Naproxen [Naprosyn] 500 mg PO Q12 #14 tab 03/30/17 Azithromycin [Zithromax] 250 mg PO DAILY #6 tab 04/21/17 Prednisone 50 mg PO DAILY #5 tab 04/21/17 - Allergies Allergies/Adverse Reactions: Allergies Allergy/AdvReac Type Severity Reaction Status Date / Time cyclobenzaprine AdvReac VOMITING Verified 09/27/16 12:45 [From Flexeril] Review of Systems ROS Statement: Except As Marked, All Systems Reviewed And Found Negative Respiratory: Positive for: Cough, Shortness of Breath, Wheezing Physical Exam - Reviewed Nursing Documentation Reviewed: Yes Vital Signs Reviewed: Yes - Physical Exam Appears: Positive for: Non-toxic, No Acute Distress Head Exam: Positive for: ATRAUMATIC, NORMAL INSPECTION, NORMOCEPHALIC Skin: Positive for: Normal Color, Warm, DRY Eye Exam: Positive for: EOMI, Normal appearance, PERRL ENT: Positive for: Normal ENT Inspection Neck: Positive for: Normal, Painless ROM Cardiovascular/Chest: Positive for: Regular Rate, Rhythm Respiratory: Positive for: Rhonchi, Wheezing. Negative for: Respiratory Distress Gastrointestinal/Abdominal: Positive for: Normal Exam, Bowel Sounds, Soft Back: Positive for: Normal Inspection Extremity: Positive for: Normal ROM Neurologic/Psych: Positive for: Alert, Oriented - ECG O2 Sat by Pulse Oximetry: 96 (RA) Pulse Ox Interpretation: Normal Medical Decision Making Medical Decision Making: Time: 22:34 Plan: - Chest X-Ray - Duoneb 3 mg/0.5 mg (3 ml) UD - Peak Flow Pre/Post Treatment Disposition - Clinical Impression Clinical Impression: Bronchitis Counseled Patient/Family Regarding: Studies Performed, Diagnosis, Need For Followup, Rx Given - Disposition Referrals: [facility] [Outside] Disposition: Routine/Home Disposition Time: 23:08 Condition: FAIR Prescriptions: Azithromycin [Zithromax] 250 mg PO DAILY #6 tab Prednisone 50 mg PO DAILY #5 tab Instructions: Acute Bronchitis (ED), Bronchospasm (ED) Forms: [employer] (Jordanian)
[2017-04-21 23:24] VITALS: O2SAT 98
--- NOTE | 2017-04-22 09:08 | RAD ---
HISTORY: cough COMPARISON: Chest radiograph dated 03/10/2017 TECHNIQUE: Chest PA and lateral FINDINGS: LUNGS: No active pulmonary disease. PLEURA: No significant pleural effusion identified. No pneumothorax apparent. CARDIOVASCULAR: Normal. OSSEOUS STRUCTURES: Unchanged. VISUALIZED UPPER ABDOMEN: Normal. OTHER FINDINGS: None. IMPRESSION: No active disease.
== END 2017-04-21 23:24 | disposition home or self-care (01) ==
LOC: H.ER 22:20
DX: J44.9 Chronic obstructive pulmonary disease, unspecified (principal)

== ENCOUNTER 2017-05-04 07:56 | Emergency (ER) | payer OTHER ==
[2017-05-04 08:03] VITALS: BP 137/88; PULSE 92; TEMP 98; O2SAT 97
[2017-05-04 08:10] VITALS: RESP 18
[2017-05-04] MEDS ORDERED: Albuterol-Ipratrop 3 mg / 0.5 (3 ml) UD IH STA (08:22)
[2017-05-04] MEDS ORDERED: Albuterol-Ipratrop 3 mg / 0.5 (3 ml) UD INH STA (08:22)
--- NOTE | 2017-05-04 09:28 | ED PDOC ---
HPI: SOB/CHF/COPD Time Seen by Provider: 05/04/17 08:08 Chief Complaint (Nursing): Shortness Of Breath Chief Complaint (Provider): Difficulty Breathing and Chest Tightness History Per: Patient History/Exam Limitations: no limitations Onset/Duration Of Symptoms: Hrs Current Symptoms Are (Timing): Still Present Associated Symptoms: denies: Fever, Chills, Productive Cough, Dizziness, Light- headedness Additional Complaint(s): 27 year old male with a past medical history of asthma presents to the ED complaining of difficulty breathing and chest tightness. The patient sates that his symptoms began yesterday while he was at work ([employer]). Patient notes some mild rhinnorhea and clear phlegm. Denies nausea, vomiting, diarrhea, vomiting, fever, chest pain, back pain, dizziness, lightheadedness. Feels same as usual asthma. Has had similar attacks in the past. No PMD Past Medical History Reviewed: Historical Data, Nursing Documentation, Vital Signs Vital Signs: Last Vital Signs Temp 98.0 F 05/04/17 08:03 Pulse 92 H 05/04/17 08:03 Resp 18 05/04/17 08:08 BP 137/88 05/04/17 08:03 Pulse Ox 97 05/04/17 09:32 - Medical History PMH: Asthma - Surgical History Surgical History: No Surg Hx - Family History Family History: States: Unknown Family Hx - Social History Current smoker - smoking cessation education provided: Yes Ex-Smoker (has not smoked in the last 12 months): Yes Alcohol: None Drugs: Denies - Home Medications Home Medications: Ambulatory Orders Medication Instructions Recorded Albuterol 0.083% [Albuterol 3 ml IH Q4 PRN #20 neb 04/16/16 Sulfate 3 Ml] Albuterol HFA [Ventolin HFA 90 2 puff IH Q4 PRN #1 inh 04/16/16 mcg/actuation (8 g)] Fluticasone/Salmeterol 250/50 1 puff IH Q12 #1 inh 04/16/16 [Advair Diskus] Prednisone 50 mg PO DAILY #5 tablet 04/16/16 Azithromycin [Zithromax Tri-Earl] 1 tab PO DAILY #3 tablet 04/18/16 Albuterol Sulfate [Proair Hfa] 0.09 mg IH Q6H PRN #2 inh 06/24/16 Azithromycin [Zithromax] 250 mg PO DAILY 5 Days tab 06/24/16 Ibuprofen [Motrin] 600 mg PO TID 7 Days tab 06/24/16 predniSONE [predniSONE Tab] 20 mg PO BID 5 Days tab 06/24/16 Ibuprofen [Motrin Tab] 800 mg PO Q6H PRN #20 tab 09/27/16 Albuterol Sulfate [Proair Hfa] 0.09 mg IH Q6H PRN #2 inh 11/09/16 predniSONE [predniSONE Tab] 20 mg PO BID 5 Days tab 11/09/16 Albuterol HFA [Ventolin HFA 90 2 puff IH [id number] PRN #1 puff 03/10/17 mcg/actuation (8 g)] Methylprednisolone [Medrol Dose 4 mg PO DAILY #21 mg 03/10/17 Pack (21 tabs)] Promethazine HCl/Codeine 5 ml PO HS #80 ml 03/10/17 [Prometh-Codein 6.25-10 mg/5 ml] Albuterol HFA [Ventolin HFA 90 1 - 2 puff IH Q6 PRN #1 inhaler 03/30/17 mcg/actuation (8 g)] Naproxen [Naprosyn] 500 mg PO Q12 #14 tab 03/30/17 Albuterol HFA [Ventolin HFA 90 2 puff IH Q4H #1 puff 04/21/17 mcg/actuation (8 g)] Azithromycin [Zithromax] 250 mg PO DAILY #6 tab 04/21/17 Prednisone 50 mg PO DAILY #5 tab 04/21/17 Albuterol Sulfate [Proair Hfa] 0.09 mg IH Q6H PRN #2 inh 05/04/17 predniSONE [predniSONE Tab] 20 mg PO BID 5 Days tab 05/04/17 - Allergies Allergies/Adverse Reactions: Allergies Allergy/AdvReac Type Severity Reaction Status Date / Time cyclobenzaprine AdvReac VOMITING Verified 09/27/16 12:45 [From Flexeril] Review of Systems ROS Statement: Except As Marked, All Systems Reviewed And Found Negative Constitutional: Negative for: Fever, Chills Cardiovascular: Positive for: Other (difficulty breathing). Negative for: Chest Pain (chest tightness), Light Headedness Gastrointestinal: Negative for: Nausea, Vomiting, Diarrhea Musculoskeletal: Negative for: Back Pain Neurological: Negative for: Dizziness Physical Exam - Reviewed Nursing Documentation Reviewed: Yes Vital Signs Reviewed: Yes - Physical Exam Appears: Positive for: Non-toxic, No Acute Distress Head Exam: Positive for: ATRAUMATIC, NORMAL INSPECTION, NORMOCEPHALIC Skin: Positive for: Normal Color, Warm, Dry. Negative for: Rash Eye Exam: Positive for: Normal appearance, EOMI, PERRL. Negative for: Nystagmus Neck: Positive for: Normal, Painless ROM, Supple Cardiovascular/Chest: Positive for: Regular Rate, Rhythm, Chest Non Tender. Negative for: Tachycardia Respiratory: Positive for: Decreased Breath Sounds, Wheezing (b/l lower bases). Negative for: Accessory Muscle Use, Rales, Rhonchi, Respiratory Distress Gastrointestinal/Abdominal: Positive for: Normal Exam, Bowel Sounds, Soft. Negative for: Tenderness, Guarding, Rebound Back: Positive for: Normal Inspection. Negative for: L CVA Tenderness, R CVA Tenderness Extremity: Positive for: Normal ROM. Negative for: Tenderness, Deformity, Swelling Lymphatic: Positive for: Normal Exam. Negative for: Adenopathy Neurologic/Psych: Positive for: Alert, Oriented, Gait - ECG ECG: Positive for: Interpreted By Me, Viewed By Me ECG Rhythm: Positive for: Normal QRS, Normal ST Segment, Sinus Rhythm O2 Sat by Pulse Oximetry: 97 (RA) Pulse Ox Interpretation: Normal - Progress ED Course And Treament: 1114: Stable. AAOx3. Pain free. Tolerated PO. No dyspnea. Medical Decision Making Medical Decision Makin Initial Impression 27 year old male presenting with difficulty breathing and chest tightness Initial Plan: * EKG * Albuterol 3mL INH * Prednisone 60mg PO * Peak flow * Reevaluation Documented by Colette Millan acting as a scribe for Magen Stern MD. All medical record entries made by the Scribe were at my direction and personally dictated by me. I have reviewed the chart and agree that the record accurately reflects my personal performance of the history, physical exam, medical decision making, and the department course for this patient. I have also personally directed, reviewed, and agree with the discharge instructions and disposition. Disposition - Clinical Impression Clinical Impression: Asthma - Patient ED Disposition Is Patient to be Admitted: No Counseled Patient/Family Regarding: Studies Performed, Diagnosis, Need For Followup, Rx Given - Disposition Referrals: [facility] [Outside] - 05/06/17 Disposition: Routine/Home Disposition Time: 11:16 Condition: STABLE Additional Instructions: Return if not better in 3 days. Prescriptions: Albuterol Sulfate [Proair Hfa] 0.09 mg IH Q6H PRN #2 inh PRN Reason: Wheezing predniSONE [predniSONE Tab] 20 mg PO BID 5 Days tab Instructions: Asthma (ED) Forms: [employer] (Mozambican)
--- NOTE | 2017-05-05 11:55 | CARD ---
APPROVED REPORT EKG Measurement Heart [id number] [place] [id number] <Conclusion> Normal sinus rhythm Possible Inferior infarct, age undetermined Abnormal ECG
== END 2017-05-04 11:36 | disposition home or self-care (01) ==
LOC: H.ER 07:56
DX: J45.909 Unspecified asthma, uncomplicated (principal)

== ENCOUNTER 2017-05-05 14:45 | Emergency (ER) | payer OTHER ==
[2017-05-05 15:00] VITALS: BP 135/87; PULSE 82; RESP 16; TEMP 98.2; O2SAT 98
--- NOTE | 2017-05-05 16:22 | RAD ---
HISTORY: cough wheezing COMPARISON: 04/21/2017 TECHNIQUE: Chest PA and lateral FINDINGS: LUNGS: There is new minimal platelike atelectasis seen at the left lung base. No new alveolar infiltrate is seen. No CHF is noted. Lung apices are unremarkable. Trachea is normal in outline. Hilar regions are normal in outline. PLEURA: No significant pleural effusion identified. No pneumothorax apparent. CARDIOVASCULAR: Normal. OSSEOUS STRUCTURES: No significant abnormalities. VISUALIZED UPPER ABDOMEN: Normal. OTHER FINDINGS: None. IMPRESSION: Minimal platelike atelectasis seen at the left lung base. No focal infiltrate or CHF.
--- NOTE | 2017-05-05 16:40 | ED PDOC ---
HPI: Abdomen Time Seen by Provider: 05/05/17 15:22 Chief Complaint (Nursing): GI Problem Chief Complaint (Provider): GI Problem History Per: Patient History/Exam Limitations: no limitations Onset/Duration Of Symptoms: Days (x3) Current Symptoms Are (Timing): Still Present Additional Complaint(s): 27 year old male, with a past medical history of asthma, who presents to the ED with cough, congestion, and wheezing x3 days. Patient was here yesterday and diagnosed with asthma exacerbation. Patient was discharged with prescriptions for Prednisone and Albuterol to be taken at home. Patient is presenting today requesting a chest X-Ray for concern of pneumonia or bronchitis. Denies fever, chest pain, and difficulty breathing at this time. PMD: Provider TBD Past Medical History Reviewed: Historical Data, Nursing Documentation, Vital Signs Vital Signs: Last Vital Signs Temp 98.2 F 05/05/17 14:56 Pulse 82 05/05/17 14:56 Resp 16 05/05/17 14:56 BP 135/87 05/05/17 14:56 Pulse Ox 98 05/05/17 17:34 - Medical History PMH: Asthma - Surgical History Surgical History: No Surg Hx - Family History Family History: States: Unknown Family Hx, Hypertension - Home Medications Home Medications: Ambulatory Orders Medication Instructions Recorded Albuterol 0.083% [Albuterol 3 ml IH Q4 PRN #20 neb 04/16/16 Sulfate 3 Ml] Albuterol HFA [Ventolin HFA 90 2 puff IH Q4 PRN #1 inh 04/16/16 mcg/actuation (8 g)] Fluticasone/Salmeterol 250/50 1 puff IH Q12 #1 inh 04/16/16 [Advair Diskus] Prednisone 50 mg PO DAILY #5 tablet 04/16/16 Azithromycin [Zithromax Tri-Earl] 1 tab PO DAILY #3 tablet 04/18/16 Albuterol Sulfate [Proair Hfa] 0.09 mg IH Q6H PRN #2 inh 06/24/16 Azithromycin [Zithromax] 250 mg PO DAILY 5 Days tab 06/24/16 Ibuprofen [Motrin] 600 mg PO TID 7 Days tab 06/24/16 predniSONE [predniSONE Tab] 20 mg PO BID 5 Days tab 06/24/16 Ibuprofen [Motrin Tab] 800 mg PO Q6H PRN #20 tab 09/27/16 Albuterol Sulfate [Proair Hfa] 0.09 mg IH Q6H PRN #2 inh 11/09/16 predniSONE [predniSONE Tab] 20 mg PO BID 5 Days tab 11/09/16 Albuterol HFA [Ventolin HFA 90 2 puff IH [id number] PRN #1 puff 03/10/17 mcg/actuation (8 g)] Methylprednisolone [Medrol Dose 4 mg PO DAILY #21 mg 03/10/17 Pack (21 tabs)] Promethazine HCl/Codeine 5 ml PO HS #80 ml 03/10/17 [Prometh-Codein 6.25-10 mg/5 ml] Albuterol HFA [Ventolin HFA 90 1 - 2 puff IH Q6 PRN #1 inhaler 03/30/17 mcg/actuation (8 g)] Naproxen [Naprosyn] 500 mg PO Q12 #14 tab 03/30/17 Albuterol HFA [Ventolin HFA 90 2 puff IH Q4H #1 puff 04/21/17 mcg/actuation (8 g)] Azithromycin [Zithromax] 250 mg PO DAILY #6 tab 04/21/17 Prednisone 50 mg PO DAILY #5 tab 04/21/17 Albuterol Sulfate [Proair Hfa] 0.09 mg IH Q6H PRN #2 inh 05/04/17 predniSONE [predniSONE Tab] 20 mg PO BID 5 Days tab 05/04/17 - Allergies Allergies/Adverse Reactions: Allergies Allergy/AdvReac Type Severity Reaction Status Date / Time acetaminophen [From Percocet] AdvReac VOMITING Verified 05/05/17 14:56 cyclobenzaprine AdvReac VOMITING Verified 09/27/16 12:45 [From Flexeril] oxycodone [From Percocet] AdvReac VOMITING Verified 05/05/17 14:56 Review of Systems ROS Statement: Except As Marked, All Systems Reviewed And Found Negative Constitutional: Negative for: Fever ENT: Positive for: Nose Congestion Cardiovascular: Negative for: Chest Pain Respiratory: Positive for: Cough, Wheezing. Negative for: Shortness of Breath Physical Exam - Reviewed Nursing Documentation Reviewed: Yes Vital Signs Reviewed: Yes - Physical Exam Appears: Positive for: Well, Non-toxic, No Acute Distress Head Exam: Positive for: ATRAUMATIC, NORMAL INSPECTION, NORMOCEPHALIC Skin: Positive for: Normal Color, Warm, Dry. Negative for: Rash Eye Exam: Positive for: EOMI, Normal appearance, PERRL ENT: Positive for: Normal ENT Inspection Neck: Positive for: Normal, Painless ROM, Supple Cardiovascular/Chest: Positive for: Regular Rate, Rhythm. Negative for: Murmur Respiratory: Positive for: Normal Breath Sounds. Negative for: Respiratory Distress Gastrointestinal/Abdominal: Positive for: Normal Exam, Bowel Sounds, Soft. Negative for: Tenderness Back: Positive for: Normal Inspection. Negative for: L CVA Tenderness, R CVA Tenderness, Vertebral Tenderness Extremity: Positive for: Normal ROM. Negative for: Pedal Edema, Deformity Neurologic/Psych: Positive for: Alert, Oriented (x3) - ECG O2 Sat by Pulse Oximetry: 98 (RA) Pulse Ox Interpretation: Normal Medical Decision Making Medical Decision Making: Time: 15:44 Initial Impression: URI, asthma exacerbation. R/o possible bronchitis Plan: --Chest X-Ray 2 views --Influenza A B --Reevaluation Time: 16:20 Chest X-Ray Findings: LUNGS: There is new minimal platelike atelectasis seen at the left lung base. No new alveolar infiltrate is seen. No CHF is noted. Lung apices are unremarkable. Trachea is normal in outline. Hilar regions are normal in outline. PLEURA: No significant pleural effusion identified. No pneumothorax apparent. CARDIOVASCULAR: Normal. OSSEOUS STRUCTURES: No significant abnormalities. VISUALIZED UPPER ABDOMEN: Normal. OTHER FINDINGS: None. IMPRESSION: Minimal platelike atelectasis seen at the left lung base. No focal infiltrate or CHF. Scribe Attestation: Documented by Rich Sandoval acting as a scribe for Romelia Johnson MD. Scribe Attestation: All medical record entries made by the Scribe were at my direction and personally dictated by me. I have reviewed the chart and agree that the record accurately reflects my personal performance of the history, physical exam, medical decision making, and the department course for this patient. I have also personally directed, reviewed, and agree with the discharge instructions and disposition. Disposition - Clinical Impression Clinical Impression: Bronchitis, Asthma - Patient ED Disposition Is Patient to be Admitted: No Doctor Will See Patient In The: Office Counseled Patient/Family Regarding: Studies Performed, Diagnosis, Need For Followup - Disposition Referrals: [facility] [Outside] Disposition: Routine/Home Disposition Time: 17:33 Condition: GOOD Additional Instructions: Take your medications as instructed. Follow up with your PCP in 2-3 days. Instructions: Acute Bronchitis (ED) Forms: [facility] ED School/Work Excuse
--- NOTE | 2017-05-06 08:53 | CARD ---
APPROVED REPORT EKG Measurement Heart [id number] <Conclusion> Normal sinus rhythm Inferior infarct, age undetermined Abnormal ECG
== END 2017-05-05 17:51 | disposition home or self-care (01) ==
LOC: H.ER 14:45
DX: J45.901 Unspecified asthma with (acute) exacerbation (principal); J40 Bronchitis, not specified as acute or chronic; Z88.5 Allergy status to narcotic agent

== ENCOUNTER 2017-07-03 13:21 | Emergency (ER) | payer OTHER ==
[2017-07-03 13:30] VITALS: BP 150/88; PULSE 105; RESP 18; TEMP 98.8; O2SAT 97
--- NOTE | 2017-07-03 13:56 | ED PDOC ---
Lower Extremity Pain/Injury Time Seen by Provider: 07/03/17 13:39 Chief Complaint (Nursing): Lower Extremity Problem/Injury Chief Complaint (Provider): Left foot pain History Per: Patient History/Exam Limitations: no limitations Onset/Duration Of Symptoms: Days Current Symptoms Are (Timing): Still Present Additional Complaint(s): 27yo male, presents to ER for evaluation of left foot pain for the past couple days. He reports redness and swelling to the foot. He denies any trauma or injury, weakness, numbness or tingling. No other complaints. Past Medical History Reviewed: Historical Data, Nursing Documentation, Vital Signs Vital Signs: Last Vital Signs Temp 98.8 F 07/03/17 13:28 Pulse 105 H 07/03/17 13:28 Resp 18 07/03/17 13:28 BP 150/88 07/03/17 13:28 Pulse Ox 97 07/03/17 13:28 - Medical History PMH: Asthma - Surgical History Surgical History: No Surg Hx - Family History Family History: States: Unknown Family Hx, Hypertension - Home Medications Home Medications: Ambulatory Orders Medication Instructions Recorded Albuterol 0.083% [Albuterol 3 ml IH Q4 PRN #20 neb 04/16/16 Sulfate 3 Ml] Albuterol HFA [Ventolin HFA 90 2 puff IH Q4 PRN #1 inh 04/16/16 mcg/actuation (8 g)] Fluticasone/Salmeterol 250/50 1 puff IH Q12 #1 inh 04/16/16 [Advair Diskus] Prednisone 50 mg PO DAILY #5 tablet 04/16/16 Azithromycin [Zithromax Tri-Earl] 1 tab PO DAILY #3 tablet 04/18/16 Albuterol Sulfate [Proair Hfa] 0.09 mg IH Q6H PRN #2 inh 06/24/16 Azithromycin [Zithromax] 250 mg PO DAILY 5 Days tab 06/24/16 Ibuprofen [Motrin] 600 mg PO TID 7 Days tab 06/24/16 predniSONE [predniSONE Tab] 20 mg PO BID 5 Days tab 06/24/16 Ibuprofen [Motrin Tab] 800 mg PO Q6H PRN #20 tab 09/27/16 Albuterol Sulfate [Proair Hfa] 0.09 mg IH Q6H PRN #2 inh 11/09/16 predniSONE [predniSONE Tab] 20 mg PO BID 5 Days tab 11/09/16 Albuterol HFA [Ventolin HFA 90 2 puff IH [id number] PRN #1 puff 03/10/17 mcg/actuation (8 g)] Methylprednisolone [Medrol Dose 4 mg PO DAILY #21 mg 03/10/17 Pack (21 tabs)] Promethazine HCl/Codeine 5 ml PO HS #80 ml 03/10/17 [Prometh-Codein 6.25-10 mg/5 ml] Albuterol HFA [Ventolin HFA 90 1 - 2 puff IH Q6 PRN #1 inhaler 03/30/17 mcg/actuation (8 g)] Naproxen [Naprosyn] 500 mg PO Q12 #14 tab 03/30/17 Albuterol HFA [Ventolin HFA 90 2 puff IH Q4H #1 puff 04/21/17 mcg/actuation (8 g)] Azithromycin [Zithromax] 250 mg PO DAILY #6 tab 04/21/17 Prednisone 50 mg PO DAILY #5 tab 04/21/17 Albuterol Sulfate [Proair Hfa] 0.09 mg IH Q6H PRN #2 inh 05/04/17 predniSONE [predniSONE Tab] 20 mg PO BID 5 Days tab 05/04/17 Clindamycin [Cleocin] 300 mg PO QID #40 cap 07/03/17 Ibuprofen [Motrin Tab] 800 mg PO Q6H PRN #20 tab 07/03/17 - Allergies Allergies/Adverse Reactions: Allergies Allergy/AdvReac Type Severity Reaction Status Date / Time acetaminophen [From Percocet] AdvReac VOMITING Verified 07/03/17 13:27 cyclobenzaprine AdvReac VOMITING Verified 07/03/17 13:27 [From Flexeril] oxycodone [From Percocet] AdvReac VOMITING Verified 07/03/17 13:27 Review of Systems ROS Statement: Except As Marked, All Systems Reviewed And Found Negative Constitutional: Negative for: Fever, Chills Musculoskeletal: Positive for: Foot Pain (left foot pain, swelling and redness) Neurological: Negative for: Weakness, Numbness Physical Exam - Reviewed Nursing Documentation Reviewed: Yes Vital Signs Reviewed: Yes - Physical Exam Appears: Positive for: Non-toxic, No Acute Distress Head Exam: Positive for: ATRAUMATIC, NORMAL INSPECTION, NORMOCEPHALIC Skin: Positive for: Normal Color Eye Exam: Positive for: Normal appearance Neck: Positive for: Supple Cardiovascular/Chest: Positive for: Regular Rate, Rhythm Respiratory: Positive for: Normal Breath Sounds. Negative for: Respiratory Distress Pulses-Dorsalis Pedis (L): 2+ Pulses-Dorsalis Pedis (R): 2+ Extremity: Positive for: Normal ROM, Swelling (swelling, erythema noted to left foot with streaking up the foot in the 4th and 5th digit. Desquamation noted as well. ) Neurologic/Psych: Positive for: Alert, Oriented. Negative for: Motor/Sensory Deficits - Laboratory Results Result Diagrams: 07/03/17 13:56 07/03/17 13:56 - ECG O2 Sat by Pulse Oximetry: 97 (RA) Pulse Ox Interpretation: Normal Medical Decision Making Medical Decision Making: Impression: Fungal infection of left foot Plan: -- Labs -- XR Left foot Scribe Attestation: Documented by Rachana Frances acting as a scribe for PHYLICIA Santiago Provider Attestation: All medical record entries made by the Scribe were at my direction and personally dictated by me. I have reviewed the chart and agree that the record accurately reflects my personal performance of the history, physical exam, medical decision making, and the department course for this patient. I have also personally directed, reviewed, and agree with the discharge instructions and disposition. Disposition - Clinical Impression Clinical Impression: Cellulitis - Patient ED Disposition Is Patient to be Admitted: No Counseled Patient/Family Regarding: Diagnosis, Need For Followup, Rx Given - Disposition Disposition: Routine/Home Disposition Time: 15:54 Condition: GOOD Prescriptions: Clindamycin [Cleocin] 300 mg PO QID #40 cap Ibuprofen [Motrin Tab] 800 mg PO Q6H PRN #20 tab PRN Reason: Pain Instructions: Cellulitis (Skin Infection), Adult (DC) Forms: [employer] ([place]), [facility] ED School/Work Excuse
[2017-07-03 14:04] LABS: HEMOGLOBIN 16.1 g/dL (12.0-18.0); MEAN CELL VOLUME 84.7 fl (80.0-94.0); MEAN CORPUSCULAR HGB CONC 34.2 g/dL (33.0-37.0); RBC 5.54 Mil/uL (4.40-5.90); RED CELL DISTRIBUTION WIDTH 13.2 % (11.5-14.5); WHITE BLOOD COUNT 11.4 K/uL (4.8-10.8)
[2017-07-03 14:13] LABS: ALBUMIN 4.5 g/dL (3.5-5.0); BLOOD UREA NITROGEN 15 mg/dl (9-20); CALCIUM 9.8 mg/dL (8.4-10.2); GFR AFRICAN-AMERICAN > 60; GFR NON-AFRICAN AMERICAN > 60
[2017-07-03 14:14] LABS: ALB/GLOB RATIO 1.1 (1.0-2.1); ALT/SGPT 84 U/L (21-72); AST/SGOT 37 U/L (17-59)
--- NOTE | 2017-07-03 14:35 | RAD ---
PROCEDURE: Left Foot Radiographs. HISTORY: left foot pain COMPARISON: None. FINDINGS: BONES: No acute fracture. JOINTS: Hallux valgus deformity. SOFT TISSUES: Normal. OTHER FINDINGS: None. IMPRESSION: No demonstrated fracture or dislocation.
== END 2017-07-03 16:18 | disposition home or self-care (01) ==
LOC: H.ER 13:21
DX: L03.116 Cellulitis of left lower limb (principal)
CPT/HCPCS: 73630; 80053; 85027; 96374; 99283; J1885